=== PATIENT | female | born 1945 | race Caucasian/White ===

== ENCOUNTER 2018-08-17 10:08 | Emergency (ER) | payer MEDICARE, MEDICAID ==
[~2018-08-17] VITALS: Ht 160 cm; Wt 90.7 kg
[~2018-08-17 10:08] MED LIST: 'CIPRO PO; AMARYL4 MG PO; APAP/HYDROCODON1 T46 PO; CHOLESTEROL MED; CIPRO500 MG PO; Flagyl500 M1 PO; Flagyl500 MG PO; GABARONE300 MG PO; GLIMEPIRIDE4 MG PO; GOOD SENSE ALLE10 MG PO; HYDROCODONE BIT1 T11 PO; JANUVIA100 MG PO; KEFLEX500 MG PO; LANTUS SOLOS100 U/M1 SC; LANTUS100 U/ML SC; LIPITOR80 MG PO; NYSTATIN CREAM15 GM T; OXYCODONE W/APA1 TAB PO; VITAMIN D50000 I1 PO; VITAMIN D50000 IU PO
[2018-08-17 10:36] LABS: BILIRUBIN NEGATIVE (NEGATIVE); BLOOD TRACE-LYSED (NEGATIVE); CLARITY CLEAR (CLEAR); COLOR YELLOW (YELLOW); GLUCOSE NEGATIVE (NEGATIVE); KETONE NEGATIVE (NEGATIVE); LEUKO ESTERASE 1+ (NEGATIVE); NITRITE NEGATIVE (NEGATIVE); SPECIFIC GRAVITY 1.015 (1.005-1.030); UROBILINOGEN 0.2 E.U./dl (0.2-1.0)
[2018-08-17 10:36] LABS: BASO % 0.2 % (0.0-1.0); EOS # 0.4 10*3/uL (0.0-0.4); EOS % 2.6 % (1.0-4.0); HEMATOCRIT 42.8 % (37.0-47.0); HEMOGLOBIN 13.6 g/dl (12.0-16.0); LYMPH # 2.4 10*3/uL (1.3-4.4); MEAN CELL VOLUME 85.4 fl (81.0-99.0); MEAN CORPUSCULAR HGB 27.1 pg (27.0-31.0); MEAN CORPUSCULAR HGB CONC 31.8 g/dl (33.0-37.0); MEAN PLATELET VOLUME 10.6 fl (9.6-12.3); NEUT % 73.7 % (47.0-73.0); PLATELET COUNT AUTOMATED 255 10*3/uL (130-400); RED BLOOD COUNT 5.01 10*6/uL (4.10-5.10); RED CELL DISTRI WIDTH 14.6 % (0-14.5); WHITE BLOOD COUNT 14.9 10*3/uL (4.8-10.8)
[2018-08-17 10:50] LABS: ACT PARTIAL THROMBO TIME 23.2 SECONDS (20.8-31.5)
[2018-08-17 10:53] LABS: ALBUMIN 3.5 gm/dl (3.1-4.5); ALKALINE PHOSPHATASE 159 U/L (45-117); BUN 13 mg/dl (7-24); CHLORIDE 105 mmol/L (98-107); CREATININE 1.09 mg/dL (0.55-1.02); LIPASE 117 U/L (73-393); POTASSIUM 3.5 mmol/L (3.5-5.1); SGOT/AST 11 IU/L (3-35); SGPT/ALT 14 U/L (12-78); SODIUM 139 mmol/L (136-145); TOTAL PROTEIN 7.2 gm/dL (6.4-8.2)
[2018-08-17 10:55] LABS: TROPONIN I < 0.015 ng/ml (<0.045)
[2018-08-17 11:39] VITALS: BP 124/76
[2018-08-17] MEDS ORDERED: ZOFRAN4 MG PO (13:20)
== END 2018-08-17 13:02 | disposition home or self-care (01) ==
LOC: ED 10:08
PROVIDERS: Emergency Medicine
DX: A08.4 Viral intestinal infection, unspecified (principal); E78.5 Hyperlipidemia, unspecified; E11.9 Type 2 diabetes mellitus without complications; Z88.6 Allergy status to analgesic agent; Z91.040 Latex allergy status; R79.1 Abnormal coagulation profile; Z79.899 Other long term (current) drug therapy; Z79.4 Long term (current) use of insulin; Z90.49 Acquired absence of other specified parts of digestive tract; Z90.710 Acquired absence of both cervix and uterus

== ENCOUNTER 2020-07-02 09:19 | Inpatient (IN) | payer OTHER, MEDICAID ==
[~2020-07-02] VITALS: Ht 154.9 cm; Wt 106.3 kg
[~2020-07-02 09:19] MED LIST changes: +ASPIRIN CHEWABL81 MG PO; -GLIMEPIRIDE4 MG PO; +GOOD SENSE ALLE10 M2 PO; -GOOD SENSE ALLE10 MG PO; +Glimepiride1 MG PO; +LANTUS SOL100 UNIT/1 SQ; -LANTUS SOLOS100 U/M1 SC; +NORVASC5 MG PO; +OMEPRAZOLE20 M2 PO; +SERTRALINE HYDR50 MG PO; +TRULICITY0.75 MG/0. SC; +ZOFRAN4 MG PO
[2020-07-02 09:20] VITALS: BP 147/58
[2020-07-02 10:06] LABS: BASO % 0.6 % (0.0-1.0); EOS # 0.3 10*3/uL (0.0-0.4); EOS % 4.7 % (1.0-4.0); HEMATOCRIT 41.5 % (37.0-47.0); LYMPH # 1.4 10*3/uL (1.3-4.4); LYMPH % 20.1 % (27.0-41.0); MEAN CORPUSCULAR HGB 26.2 pg (27.0-31.0); MEAN CORPUSCULAR HGB CONC 30.8 g/dl (33.0-37.0); MEAN PLATELET VOLUME 9.9 fl (9.6-12.3); MONO % 14.6 % (3.0-9.0); NEUT # 4.2 10*3/uL (2.3-7.9); NEUT % 59.4 % (47.0-73.0); PLATELET COUNT AUTOMATED 178 10*3/uL (130-400); RED BLOOD COUNT 4.88 10*6/uL (4.10-5.10); RED CELL DISTRI WIDTH 15.4 % (0-14.5)
[2020-07-02 10:22] LABS: ALBUMIN 3.2 gm/dl (3.1-4.5); ALKALINE PHOSPHATASE 134 U/L (45-117); BUN 11 mg/dl (7-24); CHLORIDE 107 mmol/L (98-107); CREATININE 1.11 mg/dL (0.55-1.02); POTASSIUM 3.8 mmol/L (3.5-5.1); SGOT/AST 10 IU/L (3-35); SGPT/ALT 14 U/L (12-78); SODIUM 139 mmol/L (136-145); TOTAL PROTEIN 6.8 gm/dL (6.4-8.2); TROPONIN I < 0.015 ng/ml (<0.045)
[2020-07-02 10:51] LABS: BILIRUBIN Negative (Negative); BLOOD Negative (Negative); CLARITY Clear (Clear); COLOR Yellow (Yellow); GLUCOSE Negative (Negative); KETONE Negative (Negative); LEUKO ESTERASE 3+ (Negative); NITRITE Negative (Negative); SPECIFIC GRAVITY 1.015 (1.001-1.030); UROBILINOGEN 0.2 E.U./dl (0.0-1.0)
[2020-07-02 11:07] LABS: BACTERIA 2+; EPITHELIAL CELLS 16-20; MUCOUS 1+; WBC 41-50 wbc/hpf (0-5)
[2020-07-02] MEDS ORDERED: OXYBUTYNIN5 MG PO (13:16)
[2020-07-02 16:00] VITALS: BP 157/72
[2020-07-02 20:00] VITALS: BP 127/42
[2020-07-03] VITALS: BP 123/45
[2020-07-03 06:13] LABS: BASO % 0.8 % (0.0-1.0); HEMATOCRIT 43.7 % (37.0-47.0); LYMPH % 26.6 % (27.0-41.0); MEAN CORPUSCULAR HGB 26.2 pg (27.0-31.0); MEAN CORPUSCULAR HGB CONC 30.4 g/dl (33.0-37.0); MEAN PLATELET VOLUME 10.3 fl (9.6-12.3); MONO # 0.2 10*3/uL (0.1-1.0); MONO % 4.5 % (3.0-9.0); NEUT # 2.6 10*3/uL (2.3-7.9); NEUT % 67.8 % (47.0-73.0); PLATELET COUNT AUTOMATED 156 10*3/uL (130-400); RED BLOOD COUNT 5.08 10*6/uL (4.10-5.10); RED CELL DISTRI WIDTH 15.3 % (0-14.5); WHITE BLOOD COUNT 3.8 10*3/uL (4.8-10.8)
[2020-07-03 06:26] LABS: ACT PARTIAL THROMBO TIME 27.1 SECONDS (20.0-32.1)
[2020-07-03 06:30] LABS: ALBUMIN 3.2 gm/dl (3.1-4.5); ALKALINE PHOSPHATASE 136 U/L (45-117); BUN 11 mg/dl (7-24); CHLORIDE 108 mmol/L (98-107); CHOLESTEROL 126 mg/dL (<200); LDH 131 U/L (84-246); POTASSIUM 4.7 mmol/L (3.5-5.1); SODIUM 136 mmol/L (136-145); TRIGLYCERIDES 48 mg/dl (<150); VLDL CHOLESTEROL 10 mg/dL (6-40)
[2020-07-03 06:40] LABS: CPK 42 U/L (26-192); FREE T4 0.87 ng/dl (0.76-1.46); HDL CHOLESTEROL 51 mg/dl (40-60); LDL CHOLESTEROL 65 mg/dL (9-159); SGOT/AST 10 IU/L (3-35); SGPT/ALT 15 U/L (12-78); THYROID STIM HORMONE (HS) 0.869 uIU/ml (0.358-4.75)
[2020-07-03 07:42] LABS: FERRITIN 48.8 ng/mL (10.0-291.0)
[2020-07-03 08:00] VITALS: BP 110/50
[2020-07-03 12:00] VITALS: BP 120/60
[2020-07-03 16:00] VITALS: BP 117/57
[2020-07-03 17:20] LABS: ARTERIAL BLOOD GAS PH 7.557 (7.35-7.45)
[2020-07-03 20:00] VITALS: BP 133/46
[2020-07-04] VITALS: BP 154/94
[2020-07-04 06:27] LABS: BASO % 0.2 % (0.0-1.0); HEMATOCRIT 40.7 % (37.0-47.0); LYMPH # 1.6 10*3/uL (1.3-4.4); LYMPH % 19.5 % (27.0-41.0); MEAN CELL VOLUME 84.1 fl (81.0-99.0); MEAN PLATELET VOLUME 11.1 fl (9.6-12.3); MONO # 0.5 10*3/uL (0.1-1.0); MONO % 5.8 % (3.0-9.0); PLATELET COUNT AUTOMATED 189 10*3/uL (130-400); RED BLOOD COUNT 4.84 10*6/uL (4.10-5.10); RED CELL DISTRI WIDTH 15.3 % (0-14.5); WHITE BLOOD COUNT 8.1 10*3/uL (4.8-10.8)
[2020-07-04 06:56] LABS: BUN 19 mg/dl (7-24); CHLORIDE 104 mmol/L (98-107); CREATININE 1.23 mg/dL (0.55-1.02); LDH 169 U/L (84-246); POTASSIUM 4.7 mmol/L (3.5-5.1); SODIUM 135 mmol/L (136-145)
[2020-07-04 08:00] VITALS: BP 145/52
[2020-07-04 12:00] VITALS: BP 139/68
[2020-07-04 16:00] VITALS: BP 141/53
[2020-07-04 20:00] VITALS: BP 145/63
[2020-07-05] VITALS: BP 161/65
[2020-07-05 06:08] LABS: BASO % 0.3 % (0.0-1.0); HEMATOCRIT 39.9 % (37.0-47.0); LYMPH # 1.5 10*3/uL (1.3-4.4); LYMPH % 19.2 % (27.0-41.0); MEAN CELL VOLUME 84.4 fl (81.0-99.0); MEAN CORPUSCULAR HGB 26.4 pg (27.0-31.0); MEAN CORPUSCULAR HGB CONC 31.3 g/dl (33.0-37.0); MEAN PLATELET VOLUME 11.1 fl (9.6-12.3); MONO # 0.3 10*3/uL (0.1-1.0); MONO % 3.4 % (3.0-9.0); NEUT # 5.8 10*3/uL (2.3-7.9); NEUT % 76.3 % (47.0-73.0); PLATELET COUNT AUTOMATED 196 10*3/uL (130-400); RED BLOOD COUNT 4.73 10*6/uL (4.10-5.10); RED CELL DISTRI WIDTH 15.3 % (0-14.5); WHITE BLOOD COUNT 7.6 10*3/uL (4.8-10.8)
[2020-07-05 06:33] LABS: LDH 182 U/L (84-246)
[2020-07-05 08:00] VITALS: BP 136/50
[2020-07-05 12:00] VITALS: BP 120/86
[2020-07-05 16:00] VITALS: BP 129/50
[2020-07-05 20:00] VITALS: BP 135/57
[2020-07-06] VITALS: BP 151/71
[2020-07-06 06:18] LABS: BASO % 0.2 % (0.0-1.0); HEMATOCRIT 40.2 % (37.0-47.0); LYMPH # 1.6 10*3/uL (1.3-4.4); LYMPH % 19.6 % (27.0-41.0); MEAN CELL VOLUME 84.1 fl (81.0-99.0); MEAN CORPUSCULAR HGB 26.2 pg (27.0-31.0); MEAN CORPUSCULAR HGB CONC 31.1 g/dl (33.0-37.0); MEAN PLATELET VOLUME 10.8 fl (9.6-12.3); MONO # 0.6 10*3/uL (0.1-1.0); MONO % 7.1 % (3.0-9.0); NEUT # 6.1 10*3/uL (2.3-7.9); NEUT % 72.6 % (47.0-73.0); PLATELET COUNT AUTOMATED 175 10*3/uL (130-400); RED BLOOD COUNT 4.78 10*6/uL (4.10-5.10); RED CELL DISTRI WIDTH 15.2 % (0-14.5); WHITE BLOOD COUNT 8.3 10*3/uL (4.8-10.8)
[2020-07-06 06:46] LABS: CREATININE 1.17 mg/dL (0.55-1.02); POTASSIUM 4.9 mmol/L (3.5-5.1); TOTAL PROTEIN 6.5 gm/dL (6.4-8.2)
[2020-07-06 08:00] VITALS: BP 154/63
[2020-07-06 08:34] LABS: ABG BASE EXCESS -0.4 mmol/L (-2.0-2.0); ARTERIAL BLOOD GAS PH 7.397 (7.35-7.45)
[2020-07-06 12:00] VITALS: BP 136/63
[2020-07-06 16:00] VITALS: BP 152/64
[2020-07-06] MEDS ORDERED: MUCUS RELIEF600 MG PO (17:05)
[2020-07-06] MEDS ORDERED: DECADRON6 M1 PO (17:06)
== END 2020-07-06 18:35 | disposition home or self-care (01) | DRG 177 ==
LOC: ED 09:19 → EDHOLD 12:23 → 4E 12:23
PROVIDERS: Hospitalist; Internal Medicine Critical Care Medicine; Nurse Practitioner Family; ADMIT Internal Medicine; ATTEND Internal Medicine
DX: U07.1 COVID-19 (principal); J96.01 Acute respiratory failure with hypoxia; J18.9 Pneumonia, unspecified organism; N39.0 Urinary tract infection, site not specified; J98.11 Atelectasis; D68.59 Other primary thrombophilia; Z68.41 Body mass index [BMI] 40.0-44.9, adult; E66.01 Morbid (severe) obesity due to excess calories; I12.9 Hypertensive chronic kidney disease with stage 1 through stage 4 chronic kidney disease, or unspecified chronic kidney disease; K57.90 Diverticulosis of intestine, part unspecified, without perforation or abscess without bleeding; E11.22 Type 2 diabetes mellitus with diabetic chronic kidney disease; R19.7 Diarrhea, unspecified; R32 Unspecified urinary incontinence; E78.5 Hyperlipidemia, unspecified; N18.31 Chronic kidney disease, stage 3a; R91.1 Solitary pulmonary nodule; K44.9 Diaphragmatic hernia without obstruction or gangrene; B96.20 Unspecified Escherichia coli [E. coli] as the cause of diseases classified elsewhere; R59.1 Generalized enlarged lymph nodes; Z79.4 Long term (current) use of insulin; Z90.49 Acquired absence of other specified parts of digestive tract; Z98.891 History of uterine scar from previous surgery; Z90.710 Acquired absence of both cervix and uterus; Z82.0 Family history of epilepsy and other diseases of the nervous system; Z79.899 Other long term (current) drug therapy; Z88.5 Allergy status to narcotic agent; Z86.73 Personal history of transient ischemic attack (TIA), and cerebral infarction without residual deficits

== ENCOUNTER → 2020-07-16 | Outpatient (CLI) | payer OTHER, MEDICAID ==
[~2020-07-16] MED LIST changes: +DECADRON6 M1 PO; +MUCUS RELIEF600 MG PO; +OXYBUTYNIN5 MG PO
== END | disposition home or self-care (01) ==
LOC: RAD 11:05
PROVIDERS: ATTEND Nurse Practitioner Family
DX: J12.89 Other viral pneumonia (principal); R06.02 Shortness of breath; R05 Cough

== ENCOUNTER → 2021-02-14 | Outpatient (CLI) | payer OTHER, MEDICAID | END | disposition home or self-care (01) | LOC: RAD 15:22 | PROVIDERS: ATTEND Nurse Practitioner Family | DX: M19.041 Primary osteoarthritis, right hand (principal) ==

== ENCOUNTER 2022-07-02 10:38 | Emergency (ER) | payer OTHER, MEDICAID ==
[~2022-07-02] VITALS: Ht 162.5 cm; Wt 74.8 kg
[2022-07-02 10:46] VITALS: BP 142/54
[2022-07-02 11:26] LABS: BASO % 0.5 % (0.0-1.0); EOS % 0.5 % (1.0-4.0); HEMATOCRIT 36.5 % (37.0-47.0); LYMPH # 0.2 10*3/uL (1.3-4.4); LYMPH % 5.2 % (27.0-41.0); MEAN CELL VOLUME 89.7 fl (81.0-99.0); MEAN CORPUSCULAR HGB 29.5 pg (27.0-31.0); MEAN CORPUSCULAR HGB CONC 32.9 g/dl (33.0-37.0); MEAN PLATELET VOLUME 10.1 fl (9.6-12.3); MONO # 0.6 10*3/uL (0.1-1.0); MONO % 13.6 % (3.0-9.0); NEUT # 3.4 10*3/uL (2.3-7.9); PLATELET COUNT AUTOMATED 148 10*3/uL (130-400); RED BLOOD COUNT 4.07 10*6/uL (4.10-5.10); RED CELL DISTRI WIDTH 14.6 % (0-14.5); WHITE BLOOD COUNT 4.3 10*3/uL (4.8-10.8)
[2022-07-02 11:38] LABS: ACT PARTIAL THROMBO TIME 27.3 SECONDS (20.0-32.1)
[2022-07-02 11:43] LABS: ALKALINE PHOSPHATASE 125 U/L (46-116); CHLORIDE 100 mmol/L (98-107); POTASSIUM 4.5 mmol/L (3.4-5.1); SGPT/ALT 11 U/L (10-49); SODIUM 133 mmol/L (136-145); TOTAL PROTEIN 6.7 gm/dL (6.0-8.0)
[2022-07-02 11:56] LABS: BUN < 5 mg/dl (9-23)
[2022-07-02 12:58] LABS: BILIRUBIN Negative (Negative); BLOOD Negative (Negative); CLARITY Clear (Clear); COLOR Yellow (Yellow); GLUCOSE 3+ (Negative); KETONE 1+ (Negative); LEUKO ESTERASE Negative (Negative); NITRITE Negative (Negative); PH 5.5 (4.5-8.0); UROBILINOGEN 0.2 E.U./dl (0.0-1.0)
[2022-07-02 13:05] LABS: BACTERIA 1+; HYALINE CAST 0-2; WBC 0-2 wbc/hpf (0-5)
[2022-07-02] MEDS ORDERED: ONDANSETRON HYDR4 M1 PO (13:35)
[2022-07-02] MEDS ORDERED: TAMIFLU 75MG CA75 MG PO (13:35)
== END 2022-07-02 13:39 | disposition home or self-care (01) ==
LOC: ED 10:38
PROVIDERS: Emergency Medicine
DX: J10.1 Influenza due to other identified influenza virus with other respiratory manifestations (principal); Z20.822 Contact with and (suspected) exposure to COVID-19; I10 Essential (primary) hypertension; E78.5 Hyperlipidemia, unspecified; N17.9 Acute kidney failure, unspecified; E66.9 Obesity, unspecified; Z88.8 Allergy status to other drugs, medicaments and biological substances; Z79.899 Other long term (current) drug therapy; Z90.710 Acquired absence of both cervix and uterus; Z90.49 Acquired absence of other specified parts of digestive tract; Z90.89 Acquired absence of other organs

== ENCOUNTER 2023-06-30 15:24 | Emergency (ER) | payer OTHER, MEDICAID ==
[~2023-06-30] VITALS: Ht 162.5 cm; Wt 81.6 kg
[~2023-06-30 15:24] MED LIST changes: +ONDANSETRON HYDR4 M1 PO; +TAMIFLU 75MG CA75 MG PO
[2023-06-30] MEDS ORDERED: FERROUS SULFAT325 MG PO (16:05)
[2023-06-30] MEDS ORDERED: VITAMIN C500 M8 PO (16:05)
[2023-06-30] MEDS ORDERED: HYDROXYZINE HCL25 MG PO (16:07)
[2023-06-30] MEDS ORDERED: [UNRECOGNIZED DRUG - OTHER] PO (16:09)
[2023-06-30] MEDS ORDERED: MYRBETRIQ25 M1 PO (16:10)
[2023-06-30] MEDS ORDERED: CETIRIZINE10 MG PO (16:11)
[2023-06-30] MEDS ORDERED: VITAMIN B121000 MC1 PO (16:11)
[2023-06-30] MEDS ORDERED: NORVASC5 MG PO (16:13)
[2023-06-30] MEDS ORDERED: VITAMIN D250 MCG PO (16:13)
[2023-06-30] MEDS ORDERED: JARDIANCE25 MG PO (16:14)
[2023-06-30] MEDS ORDERED: METFORMIN HCL500 M2 PO (16:14)
[2023-06-30] MEDS ORDERED: OXYBUTYNIN ER15 MG PO (16:15)
[2023-06-30 16:34] LABS: BASO # 0.1 10*3/uL (0.0-0.1); BASO % 0.4 % (0.0-1.0); EOS # 0.1 10*3/uL (0.0-0.4); EOS % 0.4 % (1.0-4.0); HEMATOCRIT 47.4 % (37.0-47.0); LYMPH # 0.9 10*3/uL (1.3-4.4); LYMPH % 7.5 % (27.0-41.0); MEAN CELL VOLUME 88.1 fl (81.0-99.0); MEAN CORPUSCULAR HGB 29.7 pg (27.0-31.0); MEAN CORPUSCULAR HGB CONC 33.8 g/dl (33.0-37.0); MEAN PLATELET VOLUME 10.5 fl (9.6-12.3); MONO # 0.8 10*3/uL (0.1-1.0); MONO % 6.7 % (3.0-9.0); NEUT # 10.6 10*3/uL (2.3-7.9); NEUT % 84.4 % (47.0-73.0); PLATELET COUNT AUTOMATED 148 10*3/uL (130-400); RED BLOOD COUNT 5.38 10*6/uL (4.10-5.10); RED CELL DISTRI WIDTH 13.1 % (0-14.5); WHITE BLOOD COUNT 12.5 10*3/uL (4.8-10.8)
[2023-06-30 16:44] LABS: ACT PARTIAL THROMBO TIME 27.3 SECONDS (20.0-32.1)
[2023-06-30 17:02] LABS: POTASSIUM 4.8 mmol/L (3.4-5.1); TOTAL PROTEIN 6.7 gm/dL (6.0-8.0)
[2023-06-30 21:16] VITALS: BP 143/82
== END 2023-06-30 22:25 | disposition short-term general hospital (02) ==
LOC: ED 15:24
PROVIDERS: Emergency Medicine
DX: G83.4 Cauda equina syndrome (principal); R53.1 Weakness; R11.2 Nausea with vomiting, unspecified; R10.2 Pelvic and perineal pain; J45.909 Unspecified asthma, uncomplicated; F32.A Depression, unspecified; F41.9 Anxiety disorder, unspecified; E11.9 Type 2 diabetes mellitus without complications; E78.00 Pure hypercholesterolemia, unspecified; Z96.651 Presence of right artificial knee joint; Z88.5 Allergy status to narcotic agent; Z88.8 Allergy status to other drugs, medicaments and biological substances; Z90.710 Acquired absence of both cervix and uterus; Z90.49 Acquired absence of other specified parts of digestive tract; Z95.5 Presence of coronary angioplasty implant and graft; Z98.890 Other specified postprocedural states

== ENCOUNTER 2023-11-09 12:05 | Emergency (ER) | payer MEDICARE, MEDICAID ==
[~2023-11-09] VITALS: Ht 162.5 cm; Wt 81.6 kg
[~2023-11-09 12:05] MED LIST changes: +CETIRIZINE10 MG PO; +FERROUS SULFAT325 MG PO; +HYDROXYZINE HCL25 MG PO; +JARDIANCE25 MG PO; +METFORMIN HCL500 M2 PO; +MYRBETRIQ25 M1 PO; +OXYBUTYNIN ER15 MG PO; +VITAMIN B121000 MC1 PO; +VITAMIN C500 M8 PO; +VITAMIN D250 MCG PO; +[UNRECOGNIZED DRUG - OTHER] PO
[2023-11-09] MEDS ORDERED: Acetaminophen/Hydrocodone 5 MG/325 MG TABLET PO ONE ×2 (12:15→14:15)
[2023-11-09] MEDS ORDERED: OMEPRAZOLE40 MG PO (12:24)
[2023-11-09] MEDS ORDERED: GLIMEPIRIDE4 M1 PO (12:25)
[2023-11-09] MEDS ORDERED: ATORVASTATIN CA40 M1 PO (12:26)
[2023-11-09] MEDS ORDERED: SERTRALINE HYD100 MG PO (12:26)
[2023-11-09] MEDS ORDERED: VITAMIN C500 M8 PO (12:28)
[2023-11-09] MEDS ORDERED: IRON325 M1 PO (12:28)
[2023-11-09] MEDS ORDERED: CETIRIZINE HYDR10 MG PO (12:30)
[2023-11-09] MEDS ORDERED: POTASSIUM CHLO20 ME4 PO (12:30)
[2023-11-09] MEDS ORDERED: AMLODIPINE BESYL5 MG PO (12:32)
[2023-11-09] MEDS ORDERED: VITAMIN D31250 MC1 PO (12:33)
[2023-11-09 14:51] VITALS: BP 160/80
== END 2023-11-09 14:57 | disposition home or self-care (01) ==
LOC: ED 12:05
DX: M25.552 Pain in left hip (principal); Z88.5 Allergy status to narcotic agent; Z88.8 Allergy status to other drugs, medicaments and biological substances; E78.5 Hyperlipidemia, unspecified; E11.22 Type 2 diabetes mellitus with diabetic chronic kidney disease; I12.9 Hypertensive chronic kidney disease with stage 1 through stage 4 chronic kidney disease, or unspecified chronic kidney disease; N18.9 Chronic kidney disease, unspecified; J45.909 Unspecified asthma, uncomplicated; E78.00 Pure hypercholesterolemia, unspecified; Z96.651 Presence of right artificial knee joint; Z90.710 Acquired absence of both cervix and uterus; Z90.49 Acquired absence of other specified parts of digestive tract; Z95.5 Presence of coronary angioplasty implant and graft; Z98.890 Other specified postprocedural states; W19.XXXA Unspecified fall, initial encounter

== ENCOUNTER → 2024-04-20 | Outpatient (CLI) | payer MEDICARE ==
[~2024-04-20] MED LIST changes: +AMLODIPINE BESYL5 MG PO; +ATORVASTATIN CA40 M1 PO; +CETIRIZINE HYDR10 MG PO; +DIAZEPAM5 MG PO; +GABAPENTIN100 M2 PO; +GLIMEPIRIDE4 M1 PO; +IRON325 M1 PO; +LISINOPRIL10 M1 PO; +NEURONTIN100 MG PO; +OMEPRAZOLE20 M3 PO; +OMEPRAZOLE40 MG PO; +OZEMPIC0.25 MG/03 SQ; +POTASSIUM CHLO20 ME4 PO; +PREDNISONE50 MG PO; +SERTRALINE HYD100 MG PO; +TOLTERODINE TART2 M3 PO; +TOPCARE OMEPRAZ20 MG PO; +VITAMIN C500 M4 PO; +VITAMIN D31250 MC1 PO; +ZESTRIL,PRINIVIL5 MG PO
== END | disposition home or self-care (01) ==
LOC: CP 15:10
PROVIDERS: ATTEND Nurse Practitioner
DX: R06.02 Shortness of breath (principal)

== ENCOUNTER → 2025-04-26 | Outpatient (CLI) | payer MEDICARE ==
[~2025-04-26] MED LIST changes: +ADMELOG100 UNIT/1 SQ; +BARIUM SULFATE 98% 340 GM BOT PO ONE; +CALCIUM CARBON200 MG PO; +GLIPIZIDE5 MG PO; +LANTUS100 UNIT/1 SC
== END | disposition home or self-care (01) ==
LOC: RAD/SH 00:06
PROVIDERS: ATTEND Internal Medicine
DX: R13.10 Dysphagia, unspecified (principal)